=== PATIENT | female | born 2000 | race Two or more races ===

== ENCOUNTER 2023-11-14 09:51 | Inpatient (IN) | payer MEDICAID, OTHER ==
[~2023-11-14] VITALS: Ht 160 cm; Wt 83.5 kg
[2023-11-14] MEDS: ONDANSETRON HCL 4 MG/2 ML VIAL IV ONE ×3 (10:21→22:29)
[2023-11-14] MEDS: MORPHINE SULFATE 4 MG/ML SYR/VIAL IV ONE (10:22)
[2023-11-14] MEDS: LORazepam 2MG/ML-1ML VIAL IV ONE ×3 (10:50→13:18)
[2023-11-14 11:29] LABS: Basophils # (auto) 0.1 10 ^3/uL (0-0.2); Basophils % (auto) 0.9 % (0.0-2.0); Eosinophils # (auto) 0 10 ^3/uL (0-0.8); Hematocrit 43.6 % (36.0-46.0); Hemoglobin 15.5 g/dL (12.2-16.2); Lymphocytes # (auto) 2.5 10 ^3/uL (0.4-5.4); Lymphocytes % (auto) 29.9 % (10.0-50.0); Mean Corpuscular Hgb Conc. 35.5 g/dL (32.0-36.0); Mean Corpuscular Volume 93.1 fL (80.0-100.0); Monocytes # (auto) 0.3 10 ^3/uL (0-1.3); Neutrophils # (auto) 5.4 10 ^3/uL (1.6-8.6); Neutrophils % (auto) 65.2 % (37.0-80.0); Platelet Count (auto) 298 10^3/uL (140-450); Red Blood Cells 4.69 10^6/uL (4.0-5.20); Red Cell Distribution Width 13.5 % (11.8-14.3); White Blood Cell 8.2 10^3/uL (4.4-10.8)
[2023-11-14 11:47] LABS: Alanine Aminotransferase 16 U/L (7-40); Albumin 4.8 g/dL (3.2-4.8); Alkaline Phosphatase 78 U/L (46-116); Anion Gap 12 (5-15); Aspartate Aminotransferase 12 U/L (13-40); BUN/Creatinine Ratio 9.3 (10.0-20.0); Blood Urea Nitrogen 7 mg/dL (9-23); Calcium 9.9 mg/dL (8.7-10.4); Carbon Dioxide 18 mmol/L (20-30); Chloride 112 mmol/L (98-107); Glucose 104 mg/dL (74-106); Potassium 3.5 mmol/L (3.5-5.1); Sodium 142 mmol/L (136-145)
[2023-11-14 11:48] LABS: Bilirubin, Total 0.7 mg/dL (0.2-1.0)
[2023-11-14] MEDS ORDERED: MORPHINE SULFATE INJ 2 MG/ml SYRG IV PRN (14:15)
[2023-11-14] MEDS ORDERED: ACETAMINOPHEN 325 MG TAB PO PRN (14:15)
[2023-11-14 14:55] LABS: INR 1.02 (0.9-1.15); Partial Thromboplastin Time 25.6 SEC (24.5-34.5); Prothrombin Time 10.8 sec (9.3-11.8)
[2023-11-14] MEDS ORDERED: MIDAZOLAM HCL 2MG/2ML 2ml VIAL (1mg/ml) ONE ×2 (17:34→17:53)
[2023-11-14] MEDS ORDERED: fentaNYL CITRATE 100 MCG/2 ML VL ONE (17:34)
[2023-11-14] MEDS: ceFAZolin 1GM/50ML 100 ML IV ONE (18:05)
[2023-11-14] MEDS ORDERED: SUGAMMADEX 200mg/2ml Vial (100MG/ML) IV ONE (18:16)
[2023-11-14] MEDS: ONDANSETRON HCL 4 MG/2 ML VIAL ONE (18:42)
[2023-11-14] MEDS ORDERED: HYDROmorphone HCL 2 MG/ML VL/or syr IV PRN (18:45)
[2023-11-14 21:26] VITALS: BP 139/76; PULSE 93; RESP 16; TEMP 98.1; O2SAT 99
[2023-11-14 22:00] VITALS: BP 139/76; PULSE 93; RESP 16; TEMP 98.1; O2SAT 99
[2023-11-15] VITALS (7 sets, daily range): BP systolic 107–130; BP diastolic 69–84; PULSE 66–87; RESP 16–20; TEMP 97.6–98.2; O2SAT 94–99
[2023-11-15] MEDS: SODIUM CHLORIDE 0.9% 1,000 ML IV SCH (00:15)
[2023-11-15] MEDS: HYDROcodone-ACET 5/325MG TAB PO PRN (04:10)
[2023-11-15 06:11] LABS: Basophils # (auto) 0 10 ^3/uL (0-0.2); Basophils % (auto) 0.3 % (0.0-2.0); Eosinophils # (auto) 0 10 ^3/uL (0-0.8); Eosinophils % (auto) 0.1 % (0.0-7.0); Hematocrit 41.2 % (36.0-46.0); Hemoglobin 14.5 g/dL (12.2-16.2); Lymphocytes # (auto) 2.4 10 ^3/uL (0.4-5.4); Lymphocytes % (auto) 27.5 % (10.0-50.0); Mean Corpuscular Hemoglobin 33.5 pg (28.0-32.0); Mean Corpuscular Hgb Conc. 35.2 g/dL (32.0-36.0); Mean Corpuscular Volume 95.1 fL (80.0-100.0); Monocytes # (auto) 0.5 10 ^3/uL (0-1.3); Monocytes % (auto) 5.9 % (0.0-12.0); Neutrophils # (auto) 5.7 10 ^3/uL (1.6-8.6); Neutrophils % (auto) 66.2 % (37.0-80.0); Platelet Count (auto) 238 10^3/uL (140-450); Red Blood Cells 4.34 10^6/uL (4.0-5.20); Red Cell Distribution Width 13.8 % (11.8-14.3); White Blood Cell 8.6 10^3/uL (4.4-10.8)
[2023-11-15 06:25] LABS: Alanine Aminotransferase 12 U/L (7-40); Alkaline Phosphatase 68 U/L (46-116); Anion Gap 9 (5-15); BUN/Creatinine Ratio 14.3 (10.0-20.0); Blood Urea Nitrogen 11 mg/dL (9-23); Carbon Dioxide 24 mmol/L (20-30); Chloride 106 mmol/L (98-107); Glucose 78 mg/dL (74-106); Potassium 3.2 mmol/L (3.5-5.1); Sodium 139 mmol/L (136-145)
[2023-11-15 06:26] LABS: Aspartate Aminotransferase 14 U/L (13-40); Bilirubin, Total 1.4 mg/dL (0.2-1.0); Total Protein 6.8 g/dL (5.7-8.2)
[2023-11-15 09:05] LABS: Urine Bacteria FEW /hpf (None Seen); Urine Blood 2+ /uL (Negative); Urine Color Light-Orange (Yellow); Urine Mucus FEW (None Seen); Urine Protein, UAD 1+ (Negative); Urine Specific Gravity 1.034 (1.001-1.035); Urine Urobilinogen 3 mg/dL (Negative); Urine WBC 57 /hpf (0 - 5)
[2023-11-15 09:08] LABS: Urine Clarity Cloudy (Clear)
[2023-11-15 09:10] LABS: Amphetamine Screen, Urine Neg (NEGATIVE)
[2023-11-15 09:11] LABS: Barbiturate Scree,Urine Neg (NEGATIVE); Benzodiazephine Screen, Urine Pos (NEGATIVE); Cannabinoid Screen, Urine Pos (NEGATIVE); Cocaine Screen, Urine Pos (NEGATIVE); Opiate Scree,Urine Pos (NEGATIVE); Phencyclidine Screen, Urine Neg (NEGATIVE)
[2023-11-15] MEDS: NICOTINE 7MG/24HR TOPICAL PATCH TD SCH (10:08)
[2023-11-15] MEDS: ONDANSETRON HCL 4 MG/2 ML VIAL IV PRN (11:09)
[2023-11-15] MEDS: POTASSIUM EFFERVESENT TAB 25 MEQ PO ONE (11:33)
[2023-11-15] MEDS ORDERED: ROCURONIUM 10MG/ML 10ML VIAL IV ONE (11:33)
[2023-11-15] MEDS ORDERED: PROPOFOL 10 MG/ML 20 ML IV ONE (11:34)
[2023-11-15] MEDS: cefTRIAXone 1GM/50ML D5W 50 ML IV ONE (11:36)
[2023-11-15] MEDS: MIDAZOLAM HCL 2MG/2ML 2ml VIAL (1mg/ml) ONE (13:24)
[2023-11-15] MEDS: MIDAZOLAM HCL 2MG/2ML 2ml VIAL (1mg/ml) IM ONE (13:24)
[2023-11-15] MEDS: ONDANSETRON HCL 4 MG/2 ML VIAL ONE (13:24)
[2023-11-15] MEDS: LORazepam 2MG/ML-1ML VIAL IV ONE (16:59)
[2023-11-15] MEDS: POLYETHYLENE GLYCOL 17 GM PWDR PO ONE (20:12)
[2023-11-16 06:27] LABS: Chloride 108 mmol/L (98-107); Potassium 3.7 mmol/L (3.5-5.1); Sodium 139 mmol/L (136-145)
[2023-11-16 06:28] LABS: Anion Gap 5 (5-15); Carbon Dioxide 26 mmol/L (20-30)
[2023-11-16 06:33] LABS: BUN/Creatinine Ratio 9.1 (10.0-20.0); Blood Urea Nitrogen 8 mg/dL (9-23); Glucose 87 mg/dL (74-106)
[2023-11-16 08:00] VITALS: PULSE 88; RESP 17; O2SAT 98
[2023-11-16 08:54] VITALS: BP 118/82; PULSE 90; RESP 16; TEMP 98.1; O2SAT 98
[2023-11-16] MEDS: cefTRIAXone 1GM/50ML D5W 50 ML IV SCH (10:00)
[2023-11-16] MEDS: POTASSIUM EFFERVESENT TAB 25 MEQ PO ONE (10:01)
[2023-11-16] MEDS ORDERED: POLY335015 PO (11:17)
[2023-11-16] MEDS ORDERED: CEPH250C PO (11:20)
[2023-11-16 12:03] VITALS: BP 118/82; PULSE 90; RESP 16; TEMP 98.1; O2SAT 98
[2023-11-16 12:08] VITALS: BP 101/66; PULSE 79; RESP 16; TEMP 98.4; O2SAT 96
[2023-11-16 13:07] LABS: Chlamydia Trachomatis, NAA Positive (Negative); Neisseria gonorrhoeae, NAA Negative (Negative)
== END 2023-11-16 12:58 | disposition home or self-care (01) | DRG 254 ==
LOC: ER 09:51 → OVERFLOW 14:11 → EAST 20:24
PROVIDERS: ADMIT Internal Medicine; ATTEND Internal Medicine
PROC: 0DCP7ZZ Extirpation of Matter from Rectum, Via Natural or Artificial Opening (ICD-10-PCS; principal; 2023-11-14 17:33)
DX: T18.5XXA Foreign body in anus and rectum, initial encounter (principal); E87.6 Hypokalemia; N39.0 Urinary tract infection, site not specified; F31.9 Bipolar disorder, unspecified; F41.9 Anxiety disorder, unspecified
CPT/HCPCS: 36415; 72192; 74018; 80048; 80053; 80307; 81001; 84702; 85025; 85610; 85730; 86850; 86900; 86901; 96374; 96375; 96376; G0378; J2250; J2405; J2704